=== PATIENT | male | born 1955 | race Caucasian/White ===

== ENCOUNTER 2019-07-24 10:21 | Inpatient (IN) | payer BC, OTHER ==
[2019-07-24] VITALS (11 sets, daily range): BP systolic 135–185; BP diastolic 76–117
[~2019-07-24] VITALS: Ht 177.8 cm; Wt 81.5 kg
[2019-07-24] MEDS ORDERED: NS IV 1000 ML 1,000 ML IV SCH (11:04)
[2019-07-24] MEDS ORDERED: diphenhydrAMINE 50 MG/ML INJ (BENADRYL) IVP ONE (11:15)
[2019-07-24] MEDS ORDERED: FAMOTIDINE 20MG/2ML IV (PEPCID) IVP ONE (11:15)
[2019-07-24] MEDS ORDERED: methylPREDNISolone 125 MG (Solu-MEDROL) VIAL IVP ONE (11:15)
[2019-07-24] MEDS ORDERED: EPINEPHrine INJECTION 1 MG/ML AMP IM ONE (11:15)
[2019-07-24 11:28] LABS: HEMATOCRIT 41 % (40-54); HEMOGLOBIN 13.6 G/DL (13.3-17.7); MEAN CORPUSCULAR HEMOGLOBIN 30 PG (25-34); MEAN CORPUSCULAR VOLUME 92 FL (80-99); WHITE BLOOD COUNT 8.6 10^3/uL (4.3-11.0)
[2019-07-24 11:29] LABS: BASOPHILS # (AUTO) 0.1 10^3/uL (0.0-0.1); BASOPHILS % (AUTO) 1 % (0-10); EOSINOPHILS # (AUTO) 0.2 10^3/uL (0.0-0.3); EOSINOPHILS % (AUTO) 2 % (0-10); LYMPHOCYTES # (AUTO) 1.7 X 10^3 (1.0-4.0); LYMPHOCYTES % (AUTO) 21 % (12-44); MEAN CORPUSCULAR HGB CONC 33 G/DL (32-36); MEAN PLATELET VOLUME 9.1 FL (7.4-10.4); MONOCYTES # (AUTO) 0.7 X 10^3 (0.0-1.0); MONOCYTES % (AUTO) 8 % (0-12); NEUTROPHILS # (AUTO) 5.8 X 10^3 (1.8-7.8); NEUTROPHILS % (AUTO) 68 % (42-75); PLATELET COUNT 272 10^3/uL (130-400)
--- NOTE | 2019-07-24 11:36 | ED General ---
General Chief Complaint: Allergic Reaction Stated Complaint: FACIAL SWELLING History of Present Illness Date Seen by Provider: Jul 24, 2019 Time Seen by Provider: 10:20 Initial Comments The patient is a 64-year-old male with a history of hypertension and hyperlipidemia. He takes losartan for blood pressure control. He presents with concern for acute onset of left-sided facial and lip and tongue swelling, all with onset at about 5:30 this morning, about 5 hours prior to arrival. Patient has had about half a dozen prior very mild episodes of similar swelling which had never been as severe as this one. He states his physician Dr. Moody switched him from lisinopril to losartan, which can also cause angioedema (though less commonly than ACEis), to avoid this problem when he disclosed to to him during an office visit. He reports that over the past hour or 2 he has noted mild difficulty swallowing as well as a very mild change in voice. He is speaking comfortably in full sentences in absolutely no distress and vital signs including oxygenation are appropriate upon initial evaluation in the emergency department. Patient is tottering secretions without difficulty. Allergies and Home Medications Allergies Coded Allergies: No Known Drug Allergies (Unverified , 07/24/19) Patient Home Medication List Home Medication List Reviewed: Yes Review of Systems Review of Systems Constitutional: see HPI All Other Systems Reviewed Negative Unless Noted: Yes (Negative excepted noted.) Past Pombgmm-Ghsyiu-Bdgskn Hx Past Med/Social Hx: Reviewed Nursing Past Med/Soc Hx Patient Social History Recent Foreign Travel: No Family Medical History Reviewed Nursing Family Hx Physical Exam Vital Signs Capillary Refill : Height, Weight, BMI Height: '" Weight: lbs. oz. kg; BMI Method: General Appearance: No Apparent Distress Comments This is an older male appearing nontoxic and in no acute distress. Head is normocephalic and atraumatic. Neck is supple and nontender. Oropharynx is moist. There is mild left mandibular facial swelling without erythema or warmth or tenderness and this extends to the upper and lower lips bilaterally and to the tongue. There appears to be very mild uvular swelling. The patient is tolerating secretions very well and speaking in a normal tone of voice. Lungs are clear to auscultation in all stations. There is a normal S1 and S2 without rubs or gallops and capillary refill is appropriate, less than 2 seconds globa lly. Abdomen is soft, nontender and nondistended. Skin is warm and dry without cyanosis, clubbing or edema. Psychiatrically, the patient eventuates appropriate mood and affect and is alert. Progress/Results/Core Measures Suspected Sepsis SIRS Temperature: Pulse: Respiratory Rate: Laboratory Tests 07/24/19 10:45: White Blood Count 8.6 Blood Pressure / Mean: Laboratory Tests 07/24/19 10:45: Platelet Count 272 Results/Orders Lab Results Laboratory Tests Test 07/24/19 10:45 Range/Units White Blood Count 8.6 4.3-11.0 10^3/uL Red Blood Count 4.52 4.35-5.85 10^6/uL Hemoglobin 13.6 13.3-17.7 G/DL Hematocrit 41 40-54 % Mean Corpuscular Volume 92 80-99 FL Mean Corpuscular Hemoglobin 30 25-34 PG Mean Corpuscular Hemoglobin Concent 33 32-36 G/DL Red Cell Distribution Width 14.0 10.0-14.5 % Platelet Count 272 130-400 10^3/uL Mean Platelet Volume 9.1 7.4-10.4 FL Neutrophils (%) (Auto) 68 42-75 % Lymphocytes (%) (Auto) 21 12-44 % Monocytes (%) (Auto) 8 0-12 % Eosinophils (%) (Auto) 2 0-10 % Basophils (%) (Auto) 1 0-10 % Neutrophils # (Auto) 5.8 1.8-7.8 X 10^3 Lymphocytes # (Auto) 1.7 1.0-4.0 X 10^3 Monocytes # (Auto) 0.7 0.0-1.0 X 10^3 Eosinophils # (Auto) 0.2 0.0-0.3 10^3/uL Basophils # (Auto) 0.1 0.0-0.1 10^3/uL My Orders Orders - JONG WINSTON MD Cbc With Automated Diff (07/24/19 11:04) Comprehensive Metabolic Panel (07/24/19 11:04) Ed Iv/Invasive Line Start (07/24/19 11:04) Ns Iv 1000 Ml (Sodium Chloride 0.9%) (07/24/19 11:04) Methylprednisolone Sod Succ (Solu-Medrol (07/24/19 11:15) Diphenhydramine Injection (Benadryl Inje (07/24/19 11:15) Famotidine Injection (Pepcid Injection) (07/24/19 11:15) Epinephrine 1 Mg Injection (Adrenalin I (07/24/19 11:15) Medications Given in ED Current Medications Medications Dose Ordered Sig/Mason Route Start Time Stop Time Status Last Admin Dose Admin Diphenhydramine HCl 50 mg ONCE ONCE IVP 07/24/19 11:15 07/24/19 11:16 DC 07/24/19 11:19 50 MG Famotidine 20 mg ONCE ONCE IVP 07/24/19 11:15 07/24/19 11:16 DC 07/24/19 11:19 20 MG Methylprednisolone Sodium Succinate 125 mg ONCE ONCE IVP 07/24/19 11:15 07/24/19 11:16 DC 07/24/19 11:19 125 MG Vital Signs/I&O Capillary Refill : Progress Note : Time: 11:36 Progress Note 64-year-old male with what sounds like a 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 Patient is tolerating secretions and protecting his airway and at this time does not need advanced airway placed. He will however require ICU admission for close monitoring. We will go ahead and give anaphylaxis kit medications for completeness although they are unlikely to be successful in resolving the patient's swelling. The patient is graciously accepted for ICU admission to [facility] by Dr. Mei. Critical Care Note Critical Care Total Time (minutes) 30 Departure Impression Primary Impression: Angioedema Disposition: ADMITTED INPATIENT Condition: Stable Departure-Patient Inst. Referrals: JARED MOODY MD (PCP/Family) Primary Care Physician JONG WINSTON MD Jul 24, 2019 11:36 POS
--- NOTE | 2019-07-24 11:40 | NUR ---
Call to Manager Relationship to ask for bed placement, expediating this transfer over 3 other transfers. Potential for airway compromise.
[2019-07-24 11:43] LABS: ALBUMIN 4.4 GM/DL (3.2-4.5); BILIRUBIN,TOTAL 0.5 MG/DL (0.1-1.0); CALCIUM 10.1 MG/DL (8.5-10.1); CREATININE SERUM 1.31 MG/DL (0.60-1.30); POTASSIUM 4.5 MMOL/L (3.6-5.0); TOTAL PROTEIN 7.8 GM/DL (6.4-8.2)
--- NOTE | 2019-07-24 11:43 | NUR ---
EMS is present in the building at a class and moving back over by ER awaiting paging for urgent transfer. There are 4 out of 6 patients needing transferred.
--- NOTE | 2019-07-24 11:45 | NUR ---
has just completed the orders and transfer form. spoke with Dr Mei [id number].
--- NOTE | 2019-07-24 11:52 | NUR ---
Call to ICU, RN unable to take report at this time.
[2019-07-24] MEDS ORDERED: LOSA50TA63 PO (12:11)
[2019-07-24] MEDS ORDERED: AMLO10TA7 PO (12:11)
[2019-07-24] MEDS ORDERED: METO100T12 PO (12:11)
[2019-07-24] MEDS ORDERED: ATOR20TA66 PO (12:11)
--- NOTE | 2019-07-24 12:27 | NUR ---
EMS departing ER for transfer to [facility].
[2019-07-24] MEDS: D5 NS 1000 ML IV SOLUTION 1,000 ML IV SCH ×2 (14:09→22:08)
[2019-07-24] MEDS ORDERED: CATHETER FLUSH 10 ML SYR IV PRN (14:15)
[2019-07-24] MEDS ORDERED: MULT-1029 PO (14:31)
[2019-07-24] MEDS ORDERED: ASPI-808 PO (14:31)
--- NOTE | 2019-07-24 14:31 | NUR ---
SPOKE WITH THE PATIENT ABOUT HIS MEDICATIONS. WE WENT OVER THE EXT MED HX AND HE VERIFIED HOW HE TAKES THEM. HE ALSO TAKES ASPIRIN 325MG AND CENTRUM DAILY OTC.
[2019-07-24] MEDS ORDERED: ENOXAPARIN 40 MG/0.4 ML (LOVENOX) SYR SQ SCH (15:30)
[2019-07-24] MEDS ORDERED: ASPIRIN 325 MG (5 GR) TABLET PO SCH ×2 (17:00→21:00)
[2019-07-24] MEDS: meTOprolol TARTRATE 50 MG (LOPRESSOR) TAB PO SCH (19:59)
[2019-07-24] MEDS ORDERED: NON-FORMULARY MEDICATION 1 EA EA (Metoprolol Tartrate 100 MG) PO SCH (21:00)
[2019-07-24] MEDS ORDERED: NON-FORMULARY MEDICATION 1 EA EA (Amlodipine Besylate 10 MG) PO SCH (21:00)
[2019-07-24] MEDS ORDERED: amLODIPine 10 MG (NORVASC) TAB PO SCH (21:00)
[2019-07-25] VITALS (11 sets, daily range): BP systolic 132–179; BP diastolic 68–122
[2019-07-25 03:49] LABS: BASOPHILS % (AUTO) 0 % (0-10); EOSINOPHILS % (AUTO) 0 % (0-10); HEMATOCRIT 40 % (40-54); HEMOGLOBIN 13.2 G/DL (13.3-17.7); LYMPHOCYTES # (AUTO) 0.8 X 10^3 (1.0-4.0); LYMPHOCYTES % (AUTO) 11 % (12-44); MEAN CORPUSCULAR HEMOGLOBIN 30 PG (25-34); MEAN CORPUSCULAR HGB CONC 33 G/DL (32-36); MEAN CORPUSCULAR VOLUME 91 FL (80-99); MEAN PLATELET VOLUME 9.1 FL (7.4-10.4); MONOCYTES # (AUTO) 0.6 X 10^3 (0.0-1.0); MONOCYTES % (AUTO) 9 % (0-12); NEUTROPHILS # (AUTO) 5.6 X 10^3 (1.8-7.8); NEUTROPHILS % (AUTO) 80 % (42-75); PLATELET COUNT 222 10^3/uL (130-400); RED CELL DISTRIBUTION WIDTH 14.3 % (10.0-14.5)
[2019-07-25 04:10] LABS: BUN/CREATININE RATIO 15; CALCIUM 9.2 MG/DL (8.5-10.1); CARBON DIOXIDE 19 MMOL/L (21-32); CHLORIDE 111 MMOL/L (98-107); CREATININE SERUM 1.02 MG/DL (0.60-1.30); GFR ESTIMATED > 60; GLUCOSE 165 MG/DL (70-105); PHOSPHORUS 2.7 MG/DL (2.3-4.7); POTASSIUM 4.1 MMOL/L (3.6-5.0); SODIUM 141 MMOL/L (135-145)
[2019-07-25] MEDS: D5 NS 1000 ML IV SOLUTION 1,000 ML IV SCH (06:10)
--- NOTE | 2019-07-25 07:00 | NUR ---
TIMELINE NOTE: 0715: REPORT RECEIVED AND CHART REVIEWED. 0800: ASSESSMENT COMPLETED. PT VOICES NO CONCERNS OR COMPLAINTS. ANXIOUS TO GO HOME. 0900: DR. BUSBY AT BEDSIDE. D/C ORDERS TO BE ENTERED. V/O TO ALLOW PT TO EAT AND DRINK OBTAINED. CLINICAL DOCUMENT IMPROVEMENT EDUCATOR NOTIFIED OF NEED FOR TRANSPORTATION ASSISTANCE. 1306: PT DISCHARGED WITH ALL PERSONAL BELONGINGS. AMBULATED FROM PT ROOM TO MAIN ENTRANCE OF HOSPITAL. TOLERATED WITHOUT DIFFICULTIES. PT LEAVING HOSPITAL VIA CAB. ALL INSTRUCTIONS GIVEN TO PATIENT WITH NO VOICED CONCERNS OR QUESTIONS.
--- NOTE | 2019-07-25 08:32 | Diagnostic Imaging Report ---
Indication: Shortness of breath Portable chest 3:42 AM There are postoperative changes from a median sternotomy. There is discoid atelectasis at left lung base. There are no infiltrates, effusions or pneumothoraces. Heart size and pulmonary vascularity are normal. IMPRESSION: No acute abnormalities in the chest Dictated by: Dictated on workstation # [id number]
[2019-07-25] MEDS ORDERED: PRD20T PO (09:42)
[2019-07-25] MEDS ORDERED: DIPH25TA29 PO (09:42)
[2019-07-25] MEDS: meTOprolol TARTRATE 50 MG (LOPRESSOR) TAB PO SCH (09:44)
--- NOTE | 2019-07-25 09:46 | Short Stay Summary ---
HPI History of Present Illness: Pt presented to ER due to swelling in face. He noted some faint swelling to his right jaw very early in the morning and didn't think much of it, went to work and it progressively got worse spreading to left side and up cheeks. He tried to eat some biscuits on break at work and felt it was somewhat difficult to get the m down. He denies shortness of breath. He states he has had unknown cause facial swelling like this 4-5x in the last year that usually resolves on it's own in a few hours but this time was worse. He was recently changed from lisinopril to losartan due to this history. This morning he feels well, his swelling is present but decreased and he is swallowing fine albeit with a mild sore throat. He is anxious to go home. Date seen by provider: Jul 25, 2019 Time Seen by Provider: 09:30 Attending Physician Mayur Mei MD PCP Jared Moody MD Consult Date of Admission Jul 24, 2019 at 11:51 Home Medications Home Medications Reviewed patient Home Medication Reconciliation performed by pharmacy medication reconciliations chemical processing technician and/or nursing. Patients Allergies have been reviewed. Allergies Coded Allergies: No Known Drug Allergies (Unverified , 07/24/19) WMA-Vgwkmr-Bccewq Hx Patient Social History Alcohol Use: Regular Use Recreational Drug Use: No Smoking Status: Current Someday Smoker Type Used: Cigarettes 2nd Hand Smoke Exposure: Yes Recent Foreign Travel: No Contact w/other who traveled: No Recent Hopitalizations: No Recent Infectious Disease Expo: No Immunizations Up To Date Date of Pneumonia Vaccine: Jul 24, 2015 Date of Influenza Vaccine: Jun 11, 2019 Past Medical History PMHx: HTN Review of Systems (CHC) Constitutional: No fever EENTM: nose congestion, throat pain Respiratory: No cough, No short of breath Cardiovascular: No chest pain Gastrointestinal: No abdominal pain, No constipation, No diarrhea, No nausea, No other Genitourinary: No dysuria Musculoskeletal: joint pain (chronic) Skin: No rash Psychiatric/Neurological: Headache (last night, resolved now) Reviewed Test Results Reviewed Test Results Lab Laboratory Tests Test 07/24/19 10:45 07/25/19 03:00 07/25/19 10:10 Range/Units White Blood Count 8.6 7.0 4.3-11.0 10^3/uL Red Blood Count 4.52 4.38 4.35-5.85 10^6/uL Hemoglobin 13.6 13.2 L 13.3-17.7 G/DL Hematocrit 41 40 40-54 % Mean Corpuscular Volume 92 91 80-99 FL Mean Corpuscular Hemoglobin 30 30 25-34 PG Mean Corpuscular Hemoglobin Concent 33 33 32-36 G/DL Red Cell Distribution Width 14.0 14.3 10.0-14.5 % Platelet Count 272 222 130-400 10^3/uL Mean Platelet Volume 9.1 9.1 7.4-10.4 FL Neutrophils (%) (Auto) 68 80 H 42-75 % Lymphocytes (%) (Auto) 21 11 L 12-44 % Monocytes (%) (Auto) 8 9 0-12 % Eosinophils (%) (Auto) 2 0 0-10 % Basophils (%) (Auto) 1 0 0-10 % Neutrophils # (Auto) 5.8 5.6 1.8-7.8 X 10^3 Lymphocytes # (Auto) 1.7 0.8 L 1.0-4.0 X 10^3 Monocytes # (Auto) 0.7 0.6 0.0-1.0 X 10^3 Eosinophils # (Auto) 0.2 0.0 0.0-0.3 10^3/uL Basophils # (Auto) 0.1 0.0 0.0-0.1 10^3/uL Sodium Level 140 141 135-145 MMOL/L Potassium Level 4.5 4.1 3.6-5.0 MMOL/L Chloride Level 103 111 H 98-107 MMOL/L Carbon Dioxide Level 22 19 L 21-32 MMOL/L Anion Gap 15 H 11 5-14 MMOL/L Blood Urea Nitrogen 18 15 7-18 MG/DL Creatinine 1.31 H 1.02 0.60-1.30 MG/DL Estimat Glomerular Filtration Rate 55 > 60 BUN/Creatinine Ratio 14 15 Glucose Level 136 H 165 H 70-105 MG/DL Calcium Level 10.1 9.2 8.5-10.1 MG/DL Corrected Calcium 9.8 8.5-10.1 MG/DL Total Bilirubin 0.5 0.1-1.0 MG/DL Aspartate Amino Transf (AST/SGOT) 26 5-34 U/L Alanine Aminotransferase (ALT/SGPT) 17 0-55 U/L Alkaline Phosphatase 67 40-136 U/L Total Protein 7.8 6.4-8.2 GM/DL Albumin 4.4 3.2-4.5 GM/DL Phosphorus Level 2.7 2.3-4.7 MG/DL Magnesium Level 2.0 1.6-2.4 MG/DL Radiology CXR 07/25/19 normal Physical Exam-(CHC) Physical Exam Vital Signs VS - Last 72 Hours, by Label POS 07/24/19 07/24/19 07/24/19 07/24/19 10:30 12:27 13:13 13:37 Temp 36.6 36.6 36.7 Pulse 80 89 92 Resp 16 16 14 B/P (MAP) 146/64 (91) 146/109 (91) 169/87 (114) Pulse Ox 97 98 98 97 O2 Delivery Room Air Room Air Room Air Room Air 07/24/19 07/24/19 07/24/19 07/24/19 13:40 14:00 15:00 15:33 Pulse 93 93 92 Resp 17 17 B/P (MAP) 149/96 (113) 161/98 (119) Pulse Ox 95 96 93 O2 Delivery Room Air Room Air Room Air 07/24/19 07/24/19 07/24/19 07/24/19 16:00 16:00 16:00 17:00 Temp 36.5 Pulse 95 105 Resp 15 22 B/P (MAP) 158/86 (110) 167/107 (127) Pulse Ox 93 96 96 O2 Delivery Room Air Room Air Room Air 07/24/19 07/24/19 07/24/19 07/24/19 18:00 19:00 19:00 20:00 Pulse 98 93 93 Resp 10 9 B/P (MAP) 167/107 (127) 143/92 (109) Pulse Ox 92 92 96 O2 Delivery Room Air Room Air Room Air 07/24/19 07/24/19 07/24/19 07/24/19 20:00 20:00 21:00 22:00 Temp 36.8 Pulse 108 81 70 Resp 19 13 10 B/P (MAP) 185/117 (139) 139/82 (101) 136/76 (96) Pulse Ox 96 90 92 O2 Delivery Room Air Room Air Room Air 07/24/19 07/25/19 07/25/19 07/25/19 23:00 00:00 00:00 00:00 Temp 36.6 Pulse 81 84 Resp 15 15 B/P (MAP) 135/77 (96) 135/77 (96) Pulse Ox 91 96 91 O2 Delivery Room Air Room Air Room Air 07/25/19 07/25/19 07/25/19 07/25/19 01:00 01:00 02:00 03:00 Pulse 82 91 68 96 Resp 10 10 12 B/P (MAP) 132/68 (89) 179/90 (119) Pulse Ox 94 95 97 O2 Delivery Room Air Room Air Room Air 07/25/19 07/25/19 07/25/19 07/25/19 04:00 04:00 05:00 06:00 Pulse 70 71 71 Resp 12 10 11 B/P (MAP) 132/74 (93) 141/81 (101) 155/82 (106) Pulse Ox 94 96 94 98 O2 Delivery Room Air Room Air Room Air Room Air 07/25/19 07:00 Pulse 75 Capillary Refill : Less Than 3 Seconds General Appearance: no apparent distress Eyes: Bilateral Eye EOMI HEENT: pharynx normal, other (mild swelling apparent to bilateral jaw area) Respiratory: lungs clear, normal breath sounds Cardiovascular: regular rate, rhythm, no murmur Gastrointestinal: normal bowel sounds, non tender, soft Neurologic/Psychiatric: normal mood/affect Skin: normal color, warm/dry Short Stay Diagnosis Discharge Diagnosis-Short Stay Admission Diagnosis See problem list Final Discharge Diagnosis See problem list Conclusion Plan See problem list Clinical Quality Measures DVT/VTE Risk/Contraindication: Risk Factor Score Per Nursin RFS Level Per Nursing on Admit: 3=High Copy Copies To 1: JARED MOODY MD Assessment/Plan Assessment/Plan (1) Angioedema Status: Acute Assessment & Plan: Possibly related to losartan, but given recurrent episodes, will check C1 esterase inhibitor and C4, labs pending at d/c. Doing well and asking to go home, went ahead and sent with prednisone and diphenhydramine given improvement, although suspicion for allergic reaction is low. Qualifiers: Qualified Codes: T78.3XXA - Angioneurotic edema, initial encounter (2) Hypertension Status: Acute Assessment & Plan: Held losartan on d/c, may need medication adjustments outpatient. Qualifiers: Qualified Codes: I10 - Essential (primary) hypertension MAYUR MEI MD Jul 25, 2019 09:46 POS
--- NOTE | 2019-07-25 09:49 | Discharge Instructions ---
Discharge [facility] Discharge Medications New, Converted or Re-Newed RX: Transmitted to Pharmacy New Medications: Diphenhydramine HCl (Diphenhydramine HCl) 25 Mg Tablet 25 MG PO Q4H PRN for swelling, itching, #60 TAB 0 Refills Prednisone (Prednisone) 20 Mg Tab 40 MG PO DAILY for 5 Days, #10 TAB 0 Refills Continued Medications: Amlodipine Besylate (Amlodipine Besylate) 10 Mg Tablet 10 MG PO HS, TAB Aspirin (Aspirin) 325 Mg Tablet 325 MG PO HS, TAB Atorvastatin Calcium (Atorvastatin Calcium) 20 Mg Tablet 20 MG PO HS, TAB Metoprolol Tartrate (Metoprolol Tartrate) 100 Mg Tablet 100 MG PO BID, TAB Multivit-Min/FA/Lycopene/Lut (Centrum Silver Tablet) 1 Each Tablet 1 TAB PO DAILY, TAB Discontinued Medications: Losartan Potassium (Losartan Potassium) 50 Mg Tablet 50 MG PO HS, TAB Patient Instructions Goal/Follow Up Appt: Follow up with Jaimee Aguilar APRN (Dr. Moody is out next week) on 07/29 at 2 pm. Patient Instructions: You had labs drawn to check for acquired C1 esterase inhibitor deficiency at the hospital, those labs will need to be followed up outpatient. Return to The Hospital For: Increased swelling, difficulty breathing Activity & Diet Discharge Diet: Low Sodium Diet Activity as Tolerated: Yes Copy Copies To 1: JARED MOODY MD, BETHANY N MD Jul 25, 2019 09:43 POS
--- NOTE | 2019-07-25 12:05 | NUR ---
CM DISCHARGE PLANNING: Patient is being dismissed home today et indicates that he in need of a ride. Explored transportation options with Joby et he indicates that he wants to pay for a cab to expedite his discharge. He voiced that he wants to get to his car that is near the ER in [place]. He spoke with the [employer] cab service/Michael et they talked through the payment exchange. Patient Joby indicates that he wants to do this. [employer] will be waiting at the gift shop entrance at this time. Notified primary care nurse.
== END 2019-07-25 13:08 | disposition home or self-care (01) | DRG 916 ==
LOC: ER FS 10:23 → ICU 11:51
PROVIDERS: ADMIT Family Medicine; ATTEND Family Medicine
DX: T78.3XXA Angioneurotic edema, initial encounter (principal); I10 Essential (primary) hypertension; E78.5 Hyperlipidemia, unspecified; F17.210 Nicotine dependence, cigarettes, uncomplicated
CPT/HCPCS: 36415; 71045; 80048; 80053; 83735; 84100; 85025; 86160; 86329; 87081; 88271